=== PATIENT | male | born 1960 | race Hispanic/Latino ===

== ENCOUNTER 2017-08-20 12:22 | Emergency (ER) | payer MEDICARE, MEDICAID ==
[2017-08-20 12:43] VITALS: TEMP 97.6
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
[2017-08-20] MEDS ORDERED: Amoxicillin-Clav 875-125 mg Tab PO STA (13:22)
--- NOTE | 2017-08-20 14:46 | RAD ---
PROCEDURE: Right Hand Radiographs. HISTORY: injury and swelling COMPARISON: None. FINDINGS: BONES: Normal. No fracture. JOINTS: Radiographic findings suggest subluxation 5th metacarpal phalangeal joint. SOFT TISSUES: Normal. OTHER FINDINGS: None. IMPRESSION: No evidence of fracture. Subluxation at the 5th metacarpal phalangeal joint.
[2017-08-20 14:48] LABS: URINE BILIRUBIN NEGATIVE (NEGATIVE); URINE BLOOD NEGATIVE (NEGATIVE); URINE GLUCOSE (UA) NEGATIVE (NEGATIVE); URINE LEUKOCYTE ESTERASE NEGATIVE Leu/uL (NEGATIVE); URINE PROTEIN NEGATIVE mg/dL (<30 mg/dL)
[2017-08-20 14:49] LABS: URINE APPEARANCE CLEAR (CLEAR); URINE COLOR YELLOW (YELLOW)
[2017-08-20 15:53] VITALS: BP 126/78; PULSE 76; RESP 18; O2SAT 98
[2017-08-20 15:55] LABS: BASO # 0.01 K/mm3 (0.0-2.0); BASO % 0.2 % (0.0-3.0); EOS # 0.1 (0.0-0.7); EOS % 1.3 % (1.5-5.0); GRAN # 3.7 (1.4-6.5); GRAN % 69.3 % (50.0-68.0); HEMOGLOBIN 12.2 g/dL (14.0-18.0); LYMPH % 19.3 % (22.0-35.0); MEAN CELL VOLUME 90.7 fl (80.0-105.0); MEAN CORPUSCULAR HEMOGLOBIN 31.4 pg (25.0-35.0); MEAN CORPUSCULAR HGB CONC 34.7 g/dl (31.0-37.0); MEAN PLATELET VOLUME 10.4 fl (7.0-11.0); MONO # 0.5 (0.1-0.6); MONO % 9.9 % (1.0-6.0); RBC 3.88 10^6/uL (3.5-6.1); RED CELL DISTRIBUTION WIDTH 12.6 % (11.5-14.5); WHITE BLOOD COUNT 5.3 10^3/ul (4.5-11.0)
[2017-08-20 16:07] LABS: ALB/GLOB RATIO 1.3 (1.1-1.8); ALBUMIN 3.5 g/dL (3.0-4.8); ALT/SGPT 12 U/L (7-56); AST/SGOT 30 U/L (17-59); BLOOD UREA NITROGEN 14 mg/dL (7-21); CALCIUM 8.7 mg/dL (8.4-10.5); GFR AFRICAN-AMERICAN > 60; GFR NON-AFRICAN AMERICAN > 60
== END 2017-08-20 15:54 | disposition home or self-care (01) ==
LOC: ED 12:22
DX: L02.511 Cutaneous abscess of right hand (principal); L03.113 Cellulitis of right upper limb; S63.219A Subluxation of metacarpophalangeal joint of unspecified finger, initial encounter; W50.3XXA Accidental bite by another person, initial encounter